=== PATIENT | female | born 1965 | race African-American/Black ===

== ENCOUNTER 2018-08-12 12:09 | Outpatient (CLI) | payer OTHER ==
[2018-08-12 13:32] LABS: BASOPHILS # (AUTO) 0.02 x10^3/uL (0-0.1); BASOPHILS % (AUTO) 0 % (0-1); EOSINOPHILS # (AUTO) 0.08 x10^3/uL (0-0.4); EOSINOPHILS % (AUTO) 2 % (1-7); LYMPHOCYTES # (AUTO) 1.62 x10^3/uL (1-3.4); LYMPHOCYTES % (AUTO) 30 % (22-44); MD NO; MEAN CORPUSCULAR HEMOGLOBIN 30.2 pg (27.0-34.8); MEAN CORPUSCULAR HGB CONC 33.9 g/dL (32.4-35.8); MEAN PLATELET VOLUME 8.3 fL (7.4-10.4); MONOCYTES # (AUTO) 0.29 x10^3/uL (0.2-0.8); MONOCYTES % (AUTO) 6 % (2-9); NEUTROPHILS # (AUTO) 3.36 x10^3/uL (1.8-6.8); NEUTROPHILS % (AUTO) 63 % (42-75); PLATELET COUNT 230 x10^3/uL (130-400); RED BLOOD COUNT 4.72 x10^6/uL (3.82-5.3); RED CELL DISTRIBUTION WIDTH 13.9 % (9.6-15.2)
[2018-08-12 13:38] LABS: ALBUMIN 3.9 g/dL (3.4-5.0); ANION GAP 7 mmol/L (5-15); CALCIUM 9.1 mg/dL (8.5-10.1); CHLORIDE 107 mmol/L (98-107); CHOLESTEROL, TOTAL 138 mg/dL (140-239); CREATININE 0.79 mg/dL (0.55-1.02); TOTAL IRON BINDING CAPACITY 265 mcg/dL (250-450)
[2018-08-12 13:52] LABS: % IRON SATURATION 26 % (20-55); ALANINE AMINOTRANSFERASE 30 U/L (12-78); ALKALINE PHOSPHATASE 94 U/L (45-117); BILIRUBIN,TOTAL 0.7 mg/dL (0.2-1.0); CHOL/HDL RATIO 2.8; HDL CHOL % 36 % (28-40); HDL CHOLESTEROL (DIRECT) 50 mg/dL (40-60); IRON LEVEL 70 mcg/dL (50-170); LDL CHOLESTEROL,CALCULATED 66 mg/dL (54-169); LDL/HDL RATIO 1.3 (0.5-3.0); PREALBUMIN 16.9 mg/dL (20.0-40.0); TOTAL PROTEIN 8.1 g/dL (6.4-8.2); TRANSFERRIN 200 mg/dL (200-360); TRIGLYCERIDES 111 mg/dL (50-200); VLDL CHOLESTEROL 22 mg/dL (0-25)
[2018-08-12 13:53] LABS: FOLATE LEVEL > 20.0 ng/mL (3.1-17.5)
[2018-08-12] MEDS ORDERED: ZOLP-413 PO (14:07)
[2018-08-12] MEDS ORDERED: MV-M1TAB54 PO (14:07)
[2018-08-12] MEDS ORDERED: LISI-167 PO (14:07)
[2018-08-12] MEDS ORDERED: VERA200C2 PO (14:07)
[2018-08-12] MEDS ORDERED: CLON2TAB9 PO (14:07)
== END 2018-08-12 23:59 | disposition home or self-care (01) ==
LOC: STAR 12:09
PROVIDERS: ATTEND Thoracic Surgery (Cardiothoracic Vascular Surgery)
DX: Z01.818 Encounter for other preprocedural examination (principal); E66.01 Morbid (severe) obesity due to excess calories; K21.9 Gastro-esophageal reflux disease without esophagitis; R06.83 Snoring; G43.909 Migraine, unspecified, not intractable, without status migrainosus
CPT/HCPCS: 36415; 71046; 80053; 80061; 82306; 82728; 82746; 83540; 83550; 83970; 84134; 84425; 84466; 85025; 93005

== ENCOUNTER 2018-08-18 07:01 | Inpatient (IN) | payer OTHER ==
[~2018-08-18] VITALS: Ht 160 cm; Wt 153.9 kg
[~2018-08-18 07:01] MED LIST: BUPIVACAINE/PF-EPI 0.5% 1:200K ONE; CLON2TAB9 PO; LISI-167 PO; MV-M1TAB54 PO; VERA200C2 PO; ZOLP-413 PO
[2018-08-18] MEDS ORDERED: LACTATED RINGERS 1,000 ML IV SCH (07:26)
[2018-08-18] MEDS ORDERED: SUGAMMADEX 200 MG/2 ML IVPush ONE (07:26)
[2018-08-18] MEDS ORDERED: SCOPOLAMINE PATCH, 1.5MG PATCH.TD72 TD ONE (07:30)
[2018-08-18] MEDS ORDERED: ACETAMINOPHEN 1,000 MG/100 ML IV IVPB ONE (07:30)
[2018-08-18 07:48] VITALS: BP 131/85
[2018-08-18] MEDS ORDERED: MIDAZOLAM 1 MG/ML, 2ML ONE (08:24)
[2018-08-18] MEDS ORDERED: FENTANYL PF 250 MCG/5ML ONE (08:24)
[2018-08-18] MEDS ORDERED: DEXAMETHASONE 4 MG/ML, 1ML ONE (09:26)
[2018-08-18] MEDS ORDERED: CEFAZOLIN 1,000 MG ONE ×2 (09:26)
[2018-08-18] MEDS ORDERED: ONDANSETRON 2MG/ML, 2ML ONE ×2 (09:26→11:19)
[2018-08-18] MEDS ORDERED: SUCCINYLCHOLINE 20 MG/ML, 10ML ONE (09:26)
[2018-08-18] MEDS ORDERED: PROPOFOL 10 MG/ML, 20ML ONE (09:26)
[2018-08-18] MEDS ORDERED: ROCURONIUM 10MG/ML,5ML ONE (09:26)
[2018-08-18] MEDS ORDERED: MIDAZOLAM 1 MG/ML, 2ML IV PRN (09:30)
[2018-08-18] MEDS ORDERED: hydrALAzine 20 MG/ML, 1ML IV PRN (09:30)
[2018-08-18] MEDS ORDERED: METOPROLOL 1 MG/ML, 5ML IV PRN (09:30)
[2018-08-18] MEDS ORDERED: ALBUTEROL/IPRATROPIUM 2.5MG/0.5MG, 3 ML NPPB PRN (09:30)
[2018-08-18] MEDS ORDERED: ONDANSETRON 2MG/ML, 2ML IV PRN (09:30)
[2018-08-18] MEDS ORDERED: PROMETHAZINE 25 MG/ML, 1ML IV PRN (09:30)
[2018-08-18] MEDS ORDERED: LIDOCAINE 2%, 6 ML JEL.PF.APP MM ONE (09:49)
[2018-08-18] MEDS ORDERED: FENTANYL PF 100 MCG/2ML ONE (10:24)
[2018-08-18] MEDS: FENTANYL PF 100 MCG/2ML IV PRN ×2 (10:27→10:38)
[2018-08-18] MEDS ORDERED: PHENOL THROAT SPRAY BOTTLE MM PRN (10:30)
[2018-08-18] MEDS ORDERED: PROMETHAZINE 25 MG/ML, 1ML IM PRN (10:30)
[2018-08-18] MEDS ORDERED: ENALAPRILAT 1.25 MG/ML, 2ML IV PRN (10:30)
[2018-08-18] MEDS ORDERED: PROMETHAZINE 12.5 MG SUPP PR PRN (10:30)
[2018-08-18] MEDS ORDERED: DIPHENHYDRAMINE 50 MG/ML, 1ML IV PRN (10:30)
[2018-08-18] MEDS ORDERED: ONDANSETRON 2MG/ML, 2ML IVPush PRN (10:30)
[2018-08-18] MEDS ORDERED: hydrALAzine 20 MG/ML, 1ML IVPush PRN (10:30)
[2018-08-18] MEDS ORDERED: LORazepam 2 MG/ML, 1ML IV PRN (10:30)
[2018-08-18] MEDS ORDERED: HYDROmorphone 2 MG/ML, 1ML ONE (10:46)
[2018-08-18] MEDS: HYDROmorphone 2 MG/ML, 1ML IVPush PRN ×3 (10:48→11:13)
[2018-08-18 11:50] VITALS: BP 130/85
[2018-08-18] MEDS: LACTATED RINGERS 1,000 ML IV SCH ×2 (12:00→17:52)
[2018-08-18] MEDS: FAMOTIDINE 20 MG/2 ML IVPush SCH ×2 (12:46→21:03)
[2018-08-18] MEDS: morphine SULFATE 10 MG/ML, 1ML IVPush PRN ×3 (12:58→21:03)
[2018-08-18 15:43] VITALS: BP 132/86
[2018-08-18 19:26] VITALS: BP 148/85
[2018-08-18] MEDS ORDERED: VERAPAMIL HCL 200 MG HOMEMEDPO SCH (21:00)
[2018-08-19] MEDS: LACTATED RINGERS 1,000 ML IV SCH ×3 (00:16→16:30)
[2018-08-19 00:41] VITALS: BP 132/72
[2018-08-19] MEDS ORDERED: HYDR120S6 PO (01:46)
[2018-08-19] MEDS: morphine SULFATE 10 MG/ML, 1ML IVPush PRN ×5 (02:39→08:18)
[2018-08-19 05:15] LABS: BASOPHILS % (AUTO) 0 % (0-1); EOSINOPHILS # (AUTO) 0.03 x10^3/uL (0-0.4); EOSINOPHILS % (AUTO) 0 % (1-7); LYMPHOCYTES # (AUTO) 0.73 x10^3/uL (1-3.4); LYMPHOCYTES % (AUTO) 10 % (22-44); MD NO; MEAN CORPUSCULAR HGB CONC 33.9 g/dL (32.4-35.8); MEAN CORPUSCULAR VOLUME 88.5 fL (80-100); MEAN PLATELET VOLUME 8.2 fL (7.4-10.4); MONOCYTES # (AUTO) 0.38 x10^3/uL (0.2-0.8); MONOCYTES % (AUTO) 5 % (2-9); NEUTROPHILS # (AUTO) 5.98 x10^3/uL (1.8-6.8); NEUTROPHILS % (AUTO) 84 % (42-75); PLATELET COUNT 194 x10^3/uL (130-400); RED BLOOD COUNT 4.01 x10^6/uL (3.82-5.3); RED CELL DISTRIBUTION WIDTH 14.1 % (9.6-15.2)
[2018-08-19 05:25] LABS: ALBUMIN 3.4 g/dL (3.4-5.0); ANION GAP 6 mmol/L (5-15); CALCIUM 8.8 mg/dL (8.5-10.1); CHLORIDE 107 mmol/L (98-107); CREATININE 0.64 mg/dL (0.55-1.02)
[2018-08-19 07:30] VITALS: BP 117/69
[2018-08-19] MEDS: FAMOTIDINE 20 MG/2 ML IVPush SCH (08:19)
[2018-08-19] MEDS ORDERED: HYDROcodone/APAP 7.5-325MG/15ML UDC PO PRN (11:00)
[2018-08-19 13:01] VITALS: BP 138/72
[2018-08-19] MEDS ORDERED: LISINOPRIL 10 MG TABLET PO SCH (21:00)
== END 2018-08-19 19:00 | disposition home or self-care (01) | DRG 621 ==
LOC: ORIP 07:01 → 4NOR 11:51
PROVIDERS: ADMIT Thoracic Surgery (Cardiothoracic Vascular Surgery); ATTEND Thoracic Surgery (Cardiothoracic Vascular Surgery)
PROC: 0DP64CZ Removal of Extraluminal Device from Stomach, Percutaneous Endoscopic Approach (ICD-10-PCS; 2018-08-18)
PROC: 0DB64Z3 Excision of Stomach, Percutaneous Endoscopic Approach, Vertical (ICD-10-PCS; principal; 2018-08-18 09:00)
DX: E66.01 Morbid (severe) obesity due to excess calories (principal); G43.909 Migraine, unspecified, not intractable, without status migrainosus; I10 Essential (primary) hypertension; R53.81 Other malaise; K21.9 Gastro-esophageal reflux disease without esophagitis; F41.1 Generalized anxiety disorder; R32 Unspecified urinary incontinence; Z68.43 Body mass index [BMI] 50.0-59.9, adult; Z98.891 History of uterine scar from previous surgery; Z90.49 Acquired absence of other specified parts of digestive tract; Z88.6 Allergy status to analgesic agent; Z80.3 Family history of malignant neoplasm of breast; Z91.041 Radiographic dye allergy status
CPT/HCPCS: 36415; J3490; 80048; 82040; 85025; G0378; J0131; J0690; J1100; J1170; J2250; J2405; J2704; J3010; J0330; J2270; J7120